=== PATIENT | male | born 1980 | race Caucasian/White ===

== ENCOUNTER 2017-10-23 10:10 | Emergency (ER) | payer SELFPAY ==
[2017-10-23] MEDS ORDERED: IBUPROFEN 600MG TABLET PO STA (12:12)
[2017-10-23 14:19] VITALS: BP 102/54
== END 2017-10-23 14:20 | disposition home or self-care (01) ==
LOC: ER 12:49
DX: R22.2 Localized swelling, mass and lump, trunk (principal); F17.210 Nicotine dependence, cigarettes, uncomplicated; F12.10 Cannabis abuse, uncomplicated
CPT/HCPCS: 74176; 99284